=== PATIENT | female | born 1930 | race Caucasian/White ===

== ENCOUNTER 2017-05-18 15:35 | Observation (INO) | payer MEDICARE, OTHER ==
[2017-05-18] MEDS ORDERED: ONDANSETRON HCL/PF 2 MG/ML VIAL IV ONE (15:58)
[2017-05-18] MEDS ORDERED: ONDANSETRON HCL/PF 2 MG/ML VIAL ONE (16:05)
[2017-05-18 16:18] LABS: Hematocrit 45.5 % (37.0-47.0); Hemoglobin 15.6 gm/dL (12.5-16.0); Mean Cell Volume 92.9 fl (78-100); Mean Corpuscular Hemoglobin 31.8 pg (27-31); Mean Corpuscular Hgb Conc 34.3 g/dl (32-36); Mean Platelet Volume 10.7 fl (6.0-9.5); Neutrophil # 5.2 K/mm3 (1.3-6.0); Neutrophil % 57.7 % (42-75.0); Platelet Count 221 K/mm3 (150-450); Red Cell Distribution Width 13.6 % (11.5-14.0); White Blood Count 9.1 K/mm3 (4.0-10.5)
[2017-05-18 16:34] LABS: ALT 16 U/L (19-67); AST 14 U/L (0-48); Albumin * 4.1 gm/dl (3.4-5.0); Alkaline Phosphatase * 97 U/L (50-170); Anion Gap 16.6 mmol/L (6.8-13.8); BUN/Creatinine Ratio 10.4 (9.0-21.6); Bilirubin, Total 0.6 mg/dL (0.0-1.1); Blood Urea Nitrogen 10 mg/dL (3-23); Ca. Corrected For Albumin 9.3 mg/dL (8.4-10.2); Calcium * 9.7 mg/dL (7.9-10.9); Carbon Dioxide 24.8 mmol/L (24-32.6); Chloride 106 mmol/L (97-106); Glucose * 164 mg/dL (70-110); Lipase 716 U/L (73-393); Potassium 3.4 mmol/L (3.4-4.6); Sodium 144 mmol/L (132-142); Total Protein 7.8 gm/dL (6.2-8.2); Troponin I Less than 0.017 ng/ml (0.00-0.10)
[2017-05-18 17:05] LABS: Urine Bilirubin Negative (NEGATIVE); Urine Blood 150 /ul (NEGATIVE); Urine Color Yellow; Urine Ketone 15 mg/dL (NEGATIVE); Urine Nitrite Negative (NEGATIVE); Urine Protein Negative (NEGATIVE); Urine Specific Gravity 1.025 SP.GR. (1.005-1.010); Urine Urobilinogen Normal (NORMAL)
[2017-05-18 17:08] LABS: Urine Bacteria 4+; Urine RBC 0-5 /hpf (0-5)
[2017-05-18] MEDS: NORMAL SALINE 1,000 ML IV ONE ×2 (17:10→20:48)
[2017-05-18 17:12] LABS: Urine Appearance Slightly Cloudy
--- NOTE | 2017-05-18 17:41 | ERNOTE ---
Chest Pain/Cardiac HPI Date of Service: 05/18/17 Chief Complaint: Chest Pain Time Seen by Provider: 05/18/17 15:52 Source: family Exam Limitations: dementia Immunizations: IMMUNIZATION HX Immunizations Up to Date Yes History of Influenza Vaccine Yes Hx Pneumococcal Vaccination No Allergies/Adverse Reactions: Allergies iodine Allergy (Verified 05/18/17 16:00) Hives Home Medications: HOME MEDICATIONS Carbamide Peroxide [Ear Drops] 3 drop OT BID 05/18/17 [Last Taken Unknown] Cholecalciferol (Vitamin D3) [Vitamin D] 2,000 unit PO DAILY 05/18/17 [Last Taken Unknown] Cyanocobalamin (Vitamin B-12) [Vitamin B-12] 500 mcg PO DAILY 05/18/17 [Last Taken Unknown] Donepezil HCl [Aricept] 10 mg PO DAILY 05/18/17 [Last Taken Unknown] Ibuprofen 200 mg PO DAILY 05/18/17 [Last Taken Unknown] Multivitamin [Multivitamins] 1 each PO DAILY 05/18/17 [Last Taken Unknown] Narrative: Patient presents to the ED for vomiting. She has been vomiting recurrently today. None yesterday. She was complaining of chest pain after the vomiting. Vomited several times, bilious. No blood. She cannot recall this d/t her dementia but family is here and give a good history. No other sick contacts. No diarrhea. No fever noted. Nothing seems to make this better or worse. She has epigastric pain now. Timing: intermittent Severity/Quality: other - unknown Location: epigastric Chest Pain Radiation: no radiation Activities at Onset: none Modifying Factors - Improves: Present: nothing Modifying Factors - Worsens: Present: nothing Associated Symptoms: Present: other - demintia complicates Prior Treatment: Denies: recently seen Review of Systems - Narrative Narrative: Unable secondary to dementia - Patient's Past Medical History Patient History - Medical: Anxiety, Dementia, Depression Patient History - Cardiac/Respiratory: No pertinent hx Patient History - Cancer: No Hx of Cancer Patient History - Surgical Procedures: Cataracts, Colonoscopy Patient History - Other: None - Social History Living Situations: home Abuse History: No History of abuse Psych History: Hx of Anxiety, Hx of Depression Smoking Status: Smoker, status unknown Have you smoked in the past 12 months: No Do you dip or chew tobacco: No Alcohol Use: none Drug Use: none - Immunizations Immunizations Up to Date: Yes Hx Pneumococcal Vaccination: No History of Influenza Vaccine: Yes Physical Exam - Physical Exam General Appearance: Present: alert Head Exam: Present: normal inspection, no evidence of injury Eye Exam: Normal inspection: bilateral, PERRL: bilateral Ears, Nose, Throat: Present: dry mucous membranes Neck: Present: normal inspection Respiratory: Present: no respiratory distress, no accessory muscle use, lungs clear Cardiovascular/Chest: Present: regular rate, rhythm Gastrointestinal/Abdominal: Present: normal bowel sounds, nondistended, soft, tenderness, other - Epigastric tendenress. No masses. No guarding or rebound, no peritoneal signs Extremity Exam: Present: non-tender Neurological Exam: Present: no motor/sensory deficits, other - dementia Skin Exam: Present: normal color, warm/dry ED Progress - Results and Orders Patient's Lab Results:: I have reviewed the patient's lab results. - Vital Signs Patient's Vital Signs:: I have reviewed the patient's vital signs. Vital Signs: Vital Signs 05/18/17 05/18/17 05/18/17 15:54 16:10 16:12 Temperature 36.0 C L 36.0 C L Pulse Rate 73 73 73 Respiratory 15 16 Rate Blood Pressure 195/93 182/89 O2 Sat by Pulse 99 97 Oximetry 05/18/17 05/18/17 16:40 17:08 Temperature 36.2 C L 36.3 C L Pulse Rate 71 68 Respiratory 12 14 Rate Blood Pressure 156/63 156/78 O2 Sat by Pulse 98 98 Oximetry - EKG EKG: NSR EKG read: Interp. by me EKG Comments: NSR rate 74. non-specific ST/T wave changes, no clear evidence of STEMI - X-Ray X-Ray #1 X-Ray: abdomen Interpretation: Interp. by me X-ray Comments: I reviewed official radiology report - Progress/Reassessment Chief Complaint: Chest Pain Progress Note-Subjective: 05/18/17 17:39 IV fluids and IV antiemetics given. Pancreatitis noted. Will admit for further treatment and evaluation. Non-surgical exam. 05/18/17 17:40 IV Rocephin for mild UTI. Departure Clinical Impression: Vomiting, Pancreatitis, UTI (urinary tract infection) - Departure Disposition: [facility] Condition: Fair
--- NOTE | 2017-05-18 20:28 | HP ---
Chief Complaint - Chief Complaint Date of Service: 05/18/17 Time of Service: 20:13 Chief Complaint: "Nausea, Vomiting". Source of HPI- Pt; unreliable, ERP report. History of Present Illness: Mrs. Schwartz is a 87-yr-old WF, pt of Dr. Issa with a PMH of: Anxiety, Depression, HLD & Osteopenia. History is provided by family member Umm as pt appears to have memory impairment. Pt complained to her grandaughter about not feeling good. She felt very weak.Granddaughter chose to bring her to the [facility] ER and on the way, she vomited and complained of epigastric pain. Pt denies the associated symptoms of diarrhea and fevers. At the ED,the BMP and CBC labs were unremarkable except for Lipase of 716. UA was positive for 4 + bacteria, WBC 5- 10, but negative on the nitrates and the Leukocytes. The abdominal X-ray did not have any acute findings and V.S were stable. She denies alcohol intake/ consumption. She received Zofran and Rocephine at the ED. She will be admitted under observation to trend the lipase and may need for additional imaging to determine the pathogenesis. - Patient's Past Medical History Patient History - Medical: Anxiety, Dementia, Depression, Other - Osteopenia Patient History - Cardiac/Respiratory: No pertinent hx Patient History - Cancer: No Hx of Cancer Patient History - Surgical Procedures: Cataracts, Colonoscopy Patient History - Other: None - Family History Mother Family History - Medical: Family History - Cardiac/Respiratory: CHF Father Family History - Medical: Family History - Cardiac/Respiratory: No pertinent hx Family History - Cancer: Colon - Social History Living Situations: alone Abuse History: No History of abuse Psych History: Hx of Anxiety, Hx of Depression Smoking Status: Never smoker Have you smoked in the past 12 months: No Do you dip or chew tobacco: No Alcohol Use: none Drug Use: none - Immunizations Immunizations Up to Date: Yes Hx Pneumococcal Vaccination: No History of Influenza Vaccine: Yes Review Of Systems (GEN) - Review of Systems Generalized/Overall Review: Present: Weakness, Malaise. Absent: Chills, Fever, Fatigue EENTM: Absent: Eye Pain, Blurred Vision Respiratory: Absent: Cough, Shortness of Breath, Orthopnea Cardiac: Absent: Chest Pain, Edema, Palpitations Abdominal: Present: Nausea, Vomiting, Abdominal Pain. Absent: Hematemesis, Constipation, Diarrhea Genitourinary: Absent: Burning, Itching, Urgency, Frequency Musculoskeletal: Absent: Joint Pain, Back Pain, Joint Swelling Neurological: Present: Anxiety. Absent: Headache, Tremors Skin: Absent: Dryness, Lesions Endocrine: Present: Intolerance to Cold. Absent: Flushing, Increased Thirst Misc: All systems neg except as marked Immunizations: IMMUNIZATION HX Immunizations Up to Date Yes History of Influenza Vaccine Yes Hx Pneumococcal Vaccination No Allergies/Adverse Reactions: Allergies Allergy/AdvReac Type Severity Reaction Status Date / Time iodine Allergy Hives Verified 05/18/17 17:56 Home Medications: HOME MEDICATIONS Carbamide Peroxide [Ear Drops] 3 drop OT BID 05/18/17 [Last Taken Unknown] Cholecalciferol (Vitamin D3) [Vitamin D] 2,000 unit PO DAILY 05/18/17 [Last Taken Unknown] Cyanocobalamin (Vitamin B-12) [Vitamin B-12] 500 mcg PO DAILY 05/18/17 [Last Taken Unknown] Donepezil HCl [Aricept] 10 mg PO DAILY 05/18/17 [Last Taken Unknown] Ibuprofen 200 mg PO DAILY PRN 05/18/17 [Last Taken Unknown] Multivitamin [Multivitamins] 1 each PO DAILY 05/18/17 [Last Taken Unknown] Exam - Exam Vital Signs: Vital Signs - Last Taken Temp 36.4 C L 05/18/17 17:58 Pulse 75 05/18/17 19:05 Resp 16 05/18/17 17:58 BP 155/81 05/18/17 17:58 Pulse Ox 96 05/18/17 17:58 Constitutional: Present: Alert, Oriented x3, Cooperative, No distress, Elderly ENT Exam: Present: normal ENT inspection Eye Exam: bilateral eye: normal inspection, PERRL Neck: Present: non-tender, full range of motion, supple Back Exam: Present: normal inspection Breasts: Present: Exam deferred Respiratory: Present: lungs clear, No rales, No wheezing Cardiovascular/Chest: Present: normal peripheral pulses, regular rate, rhythm, no chest tenderness, no edema Abdomen: Present: Normal bowel sounds, soft, nontender /Rectal: Present: Exam deferred Extremity: Present: normal range of motion, non-tender, normal inspection Skin Exam: Present: warm/dry, no cyanosis Lymphatic: Present: no adenopathy Neurologic: Present: alert, normal mood/affect, oriented x 3 Appearance: Present: appropriate appearance, impaired remote memory Eye contact: Present: cooperative, good eye contact, normal speech Thoughts: Present: normal thought pattern, no apparent hallucination, auditory hallucinations Diagnostic Studies: Laboratory Results WBC 9.1 K/mm3 (4.0-10.5) 05/18/17 16:07 RBC 4.90 M/mm3 (4.2-5.4) 05/18/17 16:07 Hgb 15.6 gm/dL (12.5-16.0) 05/18/17 16:07 Hct 45.5 % (37.0-47.0) 05/18/17 16:07 MCV 92.9 fl (78-100) 05/18/17 16:07 MCH 31.8 pg (27-31) H 05/18/17 16:07 MCHC 34.3 g/dl (32-36) 05/18/17 16:07 RDW 13.6 % (11.5-14.0) 05/18/17 16:07 Plt Count 221 K/mm3 (150-450) 05/18/17 16:07 MPV 10.7 fl (6.0-9.5) H 05/18/17 16:07 Immature Gran % (Auto) 0.20 % (0.001-0.429) 05/18/17 16:07 Immature Gran # (Auto) 0.02 K/mm3 (0.000-0.0310) 05/18/17 16:07 Neutrophils % 57.7 % (42-75.0) 05/18/17 16:07 Lymphocytes % 29.1 % (20-51) 05/18/17 16:07 Monocytes % 5.6 % (0.0-9) 05/18/17 16:07 Eosinophils % 6.6 % (0.0-3.0) H 05/18/17 16:07 Basophils % 0.8 % (0.0-1.0) 05/18/17 16:07 Nucleated RBC % 0.0 k/mm3 (0-1) 05/18/17 16:07 Neutrophils # 5.2 K/mm3 (1.3-6.0) 05/18/17 16:07 Lymphocytes # 2.6 k/mm3 (1.5-3.5) 05/18/17 16:07 Monocytes # 0.5 k/mm3 (0.0-1.0) 05/18/17 16:07 Eosinophils # 0.6 k/mm3 (0.0-0.7) 05/18/17 16:07 Absolute Basophils 0.1 k/mm3 (0.0-0.1) 05/18/17 16:07 Sodium 144 mmol/L (132-142) H 05/18/17 16:07 Plasma Sodium 145 mmol/L (130-142) H 05/18/17 16:07 Potassium 3.4 mmol/L (3.4-4.6) 05/18/17 16:07 Chloride 106 mmol/L (97-106) 05/18/17 16:07 Carbon Dioxide 24.8 mmol/L (24-32.6) 05/18/17 16:07 Anion Gap 16.6 mmol/L (6.8-13.8) H 05/18/17 16:07 BUN 10 mg/dL (3-23) 05/18/17 16:07 Creatinine 0.96 mg/dL (0.4-1.4) 05/18/17 16:07 Est GFR (Non-Af Amer) 59 mL/min (60-130) L 05/18/17 16:07 BUN/Creatinine Ratio 10.4 (9.0-21.6) 05/18/17 16:07 Random Glucose 164 mg/dL (70-110) H 05/18/17 16:07 Lactic Acid, Venous 1.1 mmol/L (0.4-1.9) 05/18/17 19:20 Calcium 9.7 mg/dL (7.9-10.9) 05/18/17 16:07 Calcium Adj for Albumin 9.3 mg/dL (8.4-10.2) 05/18/17 16:07 Total Bilirubin 0.6 mg/dL (0.0-1.1) 05/18/17 16:07 AST 14 U/L (0-48) 05/18/17 16:07 ALT 16 U/L (19-67) L 05/18/17 16:07 Alkaline Phosphatase 97 U/L (50-170) 05/18/17 16:07 Troponin I Less than 0.017 ng/ml (0.00-0.10) 05/18/17 16:07 Total Protein 7.8 gm/dL (6.2-8.2) 05/18/17 16:07 Albumin 4.1 gm/dl (3.4-5.0) 05/18/17 16:07 Lipase 716 U/L (73-393) H 05/18/17 16:07 Urine Color Yellow 05/18/17 16:45 Urine Appearance Slightly cloudy 05/18/17 16:45 Urine pH 6.0 pH (5.0-7.0) 05/18/17 16:45 Ur Specific [place] 1.025 SP.GR. (1.005-1.010) 05/18/17 16:45 Urine Protein Negative mg/dL (NEGATIVE) 05/18/17 16:45 Urine Glucose (UA) Negative mg/dL (NEGATIVE) 05/18/17 16:45 Urine Ketones 15 mg/dL (NEGATIVE) 05/18/17 16:45 Urine Blood 150 /ul (NEGATIVE) H 05/18/17 16:45 Urine Nitrate Negative (NEGATIVE) 05/18/17 16:45 Urine Bilirubin Negative mg/dl (NEGATIVE) 05/18/17 16:45 Urine Urobilinogen Normal EU/dl (NORMAL) 05/18/17 16:45 Ur Leukocyte Esterase Negative /ul (NEGATIVE) 05/18/17 16:45 Urine RBC 0-5 /hpf (0-5) 05/18/17 16:45 Urine WBC 5-10 /hpf (0-5) H 05/18/17 16:45 Ur Epithelial Cells None seen /hpf (0-5) 05/18/17 16:45 Urine Bacteria 4+ (NONE) H 05/18/17 16:45 Urine Culture Comments Culture to follow 05/18/17 16:45 Influenza Type A Ag Negative (NEGATIVE) 05/18/17 16:49 Influenza Type B Ag Negative (NEGATIVE) 05/18/17 16:49 Assessment/Plan - Assessment/Plan (1) Acute pancreatitis Assessment: Pt is a 87-yr female who presented with n/v and mid-epigastric pain. Her Serum Amylase and all other LFTs were in the NR except for Lipase which was 716. Pt has no history of gallstones and Alcohol use therefore may consider checking the triglycerides levels. There is no other abdominal imaging pending except fro Abd. X-ray which did not indicate any acute findings.She will need and Abdominal US to assess for gallstones. Will manage in the meantime with: NPO until pt is free of pain, Early fluid resuscitation with 200ml/hr within 24 hours of presentation to reduce SIRS and organ failure, provide analgesics and antiemetics. Will repeat CBC & Amylase/Lipase in am. Problem: Acute (2) UTI (urinary tract infection) Assessment: Will continue with Rocephin until urine culture results. Provide IVF hyrdation. Laboratory Tests 05/18/17 16:45 Urine Nitrate Negative Ur Leukocyte Esterase Negative Urine WBC 5-10 H Urine Bacteria 4+ H Urine Culture Comments Culture to follow Problem: Acute (3) Dementia Problem: Chronic (4) Anxiety Problem: Chronic (5) Depression Problem: Chronic (6) HLD (hyperlipidemia) Problem: Chronic
[2017-05-18] MEDS ORDERED: IBUPROFEN 200 MG TABLET PO PRN (20:42)
[2017-05-18] MEDS: CARBAMIDE PEROXIDE 150 DROP BTL OT SCH (20:48)
[2017-05-18] MEDS ORDERED: ACETAMINOPHEN 325 MG TABLET PO PRN (20:59)
[2017-05-18] MEDS ORDERED: ONDANSETRON HCL/PF 2 MG/ML VIAL IV PRN (21:00)
[2017-05-18] MEDS ORDERED: HYDROmorphone HCL 1 MG/ML DISP.SYRIN IV PRN (21:00)
[2017-05-19] MEDS ORDERED: DEXTROSE 5%-NORMAL SALINE 1,000 ML IV PRN (07:11)
[2017-05-19] MEDS ORDERED: HYDROmorphone HCL 2 MG/ML VIAL IV PRN (07:15)
[2017-05-19] MEDS: DONEPEZIL HCL 10 MG TABLET PO SCH (09:04)
[2017-05-19] MEDS: MULTIVITAMINS 1 CAP CAPSULE PO SCH (09:04)
[2017-05-19] MEDS: CARBAMIDE PEROXIDE 150 DROP BTL OT SCH ×2 (09:04→20:21)
[2017-05-19] MEDS: CHOLECALCIFEROL 1,000 UNIT CAPSULE PO SCH (09:04)
[2017-05-19] MEDS: CYANOCOBALAMIN 1,000 MCG TABLET PO SCH (09:04)
--- NOTE | 2017-05-19 10:59 | PN ---
Subjective - Date and Time Seen Date: 05/19/17 Time: 10:53 Subjective Narrative: Patient is abdominal pain free now. She is wanting to have [employer]. Her Lipase is down to 600. Her UA showed bacteuria and is growing Gram neg bacilli over 100, 000 CFU. Objective - Review of Systems Generalized/Overall Review: Reports: Weakness. Denies: Chills, Fever Respiratory: Denies: Cough, Shortness of Breath Cardiac: Denies: Chest Pain, Palpitations Abdominal: Reports: Nausea, Vomiting Genitourinary Symptoms: Denies: Burning, Urgency, Frequency Musculoskeletal Complaints: Reports: Joint Pain - Vitals Vitals: Last Vital Signs Temp 36.6 C 05/19/17 10:05 Pulse 67 05/19/17 10:05 Resp 18 05/19/17 10:05 BP 142/67 05/19/17 10:05 Pulse Ox 97 05/19/17 10:05 - Abnormal Lab Findings Abnormal Lab Findings: Abnormal Lab Results 05/19/17 Range/Units 05:35 Lipase 679 H (73-393) U/L - Exam Constitutional: Present: Alert - AAO x 2 ENT Exam: Present: hearing grossly normal Neck: Present: supple Respiratory: Present: decreased breath sounds, No rales, No wheezing Cardiovascular/Chest: Present: regular rate, rhythm, no JVD, no murmur Abdomen: Present: Normal bowel sounds, soft, nontender, nondistended Extremity: Present: no pedal edema, no calf tenderness Assessment/Plan - Problems/Diagnosis (1) Vomiting Problem: Acute Narrative: with nausea and epigastric pain likely acute gastroduodenitis (2) Elevated lipase Problem: Acute Narrative: mildly elevated now trending down. unlikely acute pancreatitis ( not more than 3 x of ULN). follow up US of her abdomen. likely due to acute gastroduodenitis- takes Ibuprofen. (3) UTI (urinary tract infection) Problem: Acute Narrative: Culture growing gram negative bacilli. continue with IV rocephin. (4) Dementia Problem: Chronic Qualifiers: Dementia type: Alzheimer's disease
[2017-05-19] MEDS: PANTOPRAZOLE SODIUM 40 MG TABLET.EC PO SCH (11:31)
[2017-05-19] MEDS ORDERED: cefTRIAXone SODIUM 1,000 MG in DEXTROSE 5 % IN WATER 50 ML IV SCH ×2 (18:00)
[2017-05-20] MEDS: PANTOPRAZOLE SODIUM 40 MG TABLET.EC PO SCH (06:51)
[2017-05-20] MEDS: CARBAMIDE PEROXIDE 150 DROP BTL OT SCH (08:17)
[2017-05-20] MEDS: DONEPEZIL HCL 10 MG TABLET PO SCH (08:17)
[2017-05-20] MEDS: MULTIVITAMINS 1 CAP CAPSULE PO SCH (08:17)
[2017-05-20] MEDS: CHOLECALCIFEROL 1,000 UNIT CAPSULE PO SCH (08:17)
[2017-05-20] MEDS: CYANOCOBALAMIN 1,000 MCG TABLET PO SCH (08:17)
--- NOTE | 2017-05-20 10:46 | DS ---
(1) Vomiting Problem: Resolved (2) Elevated lipase Problem: Resolved (3) UTI (urinary tract infection) Problem: Acute (4) Dementia Problem: Chronic Qualifiers: Dementia type: Alzheimer's disease Description of Stay: Keiry Schwartz is a 87-yr-old WF, pt of Dr. Issa with a PMH of: Anxiety, Depression, HLD & Osteopenia who was admitted on 05/18/2017 for weakness and vomiting /midepigastric pain. History was provided by family member Umm as pt appeared to have memory impairment. Pt complained to her grandaughter about not feeling good. She felt very weak.Granddaughter chose to bring her to the [facility] ER and on the way, she vomited and complained of epigastric pain. Pt denied the associated symptoms of diarrhea and fevers. At the ED,the BMP and CBC labs were unremarkable except for Lipase of 716. UA was positive for 4 + bacteria, WBC 5- 10, but negative on the nitrates and the Leukocytes. The abdominal X-ray did not have any acute findings and V.S were stable. She denies alcohol intake/ consumption. She received Zofran and Rocephine at the ED. She was admitted under observation . Her liaose trended down and is back to normal. She most likely had acute gastroduodenitis as she takes Ibuprofen regularly. Her US though showed dilated pancreatic duct and will schedule her a a 4 phased CTS with and w/o contrast on an outpatient basis. She could have had a stone that passed. Alternative will be an ERCP per radiology. She also had UTI with Gram Negative Bacilli and had IV rocephin. . Procedures Performed: none Discharge Disposition: Home self care Disposition: Home self-care Condition: Stable Discharge Activity: Activity as tolerated Discharge Diet: Low fat/chol Referrals: Rigo Issa MD [Primary Care Provider] - Additional Patient Instructions (free text): Follow up with PCP in 1 week. Prescriptions (Any new or edited meds): Acetaminophen [Tylenol] 650 mg PO Q6H PRN #30 tablet PRN Reason: Mild Pain (Pain Scale 1-3) Pantoprazole Sodium [Protonix] 40 mg PO DAILY@0700 #30 tablet. Sulfamethoxazole/Trimethoprim [Bactrim Ds] 1 tab PO BID #6 tab Complete Home Medications List: Complete Home Medication List: Carbamide Peroxide [Ear Drops] 3 drop OT BID 05/18/17 Cholecalciferol (Vitamin D3) [Vitamin D3] 2,000 unit PO DAILY 05/18/17 Cyanocobalamin (Vitamin B-12) [Vitamin B-12] 500 mcg PO DAILY 05/18/17 Donepezil HCl [Aricept] 10 mg PO DAILY 05/18/17 Multivitamin [Multivitamins] 1 each PO DAILY 05/18/17 Acetaminophen [Tylenol] 650 mg PO Q6H PRN #30 tablet 05/20/17 Pantoprazole Sodium [Protonix] 40 mg PO DAILY@0700 #30 tablet. 05/20/17 Sulfamethoxazole/Trimethoprim [Bactrim Ds] 1 tab PO BID #6 tab 05/20/17
[2017-05-21 08:27] VITALS: BP 145/85
== END 2017-05-20 12:13 | disposition home or self-care (01) ==
LOC: ER 15:35 → MS 17:12
PROVIDERS: ADMIT Internal Medicine; ATTEND Internal Medicine
DX: N39.0 Urinary tract infection, site not specified; M85.80 Other specified disorders of bone density and structure, unspecified site; F02.80 Dementia in other diseases classified elsewhere, unspecified severity, without behavioral disturbance, psychotic disturbance, mood disturbance, and anxiety; R74.8 Abnormal levels of other serum enzymes; G30.9 Alzheimer's disease, unspecified; Z68.24 Body mass index [BMI] 24.0-24.9, adult; R11.10 Vomiting, unspecified
CPT/HCPCS: 36415; 74019; 76705; 80053; 81001; 83605; 83690; 84484; 85025; 87040; 87077; 87086; 87186; 87400; 93005; 96365; 96366; 96367; 96375; 99285; G0378; J2405